=== PATIENT | male | born 1960 | race Caucasian/White ===

== ENCOUNTER 2017-05-05 06:12 | Inpatient (IN) ==
[2017-04-28 14:00] LABS: MANUAL DIFF NEEDED? NO
[2017-04-28 14:00] LABS: URINE MICRO REVIEW NEEDED? NO; URINE SOURCE CLEAN CATCH
[2017-04-28 14:11] LABS: BASO% 0.5 % (0.0-0.8); EOS# 0.08 X1000 (0.0-0.7); EOS% 0.9 % (0.0-10.0); HEMATOCRIT 41.6 % (42.0-52.0); HEMOGLOBIN 14.7 g/dL (14.0-18.0); LYMPH# 2.42 X1000 (1.2-3.4); LYMPH% 26.5 % (20.5-51.1); MCH 34.1 PG (27-31); MCHC 35.3 g/dL (33-37); MCV 96.5 FL (81-99); MONO# 0.79 X1000 (0.11-0.59); MONO% 8.7 % (1.7-9.3); MPV 9.4 FL (7.4-10.4); NEUT% 63.4 % (42.2-75.2); PLT 314 X1000 (130-400); RBC 4.31 XMIL (4.7-6.1)
[2017-04-28 14:12] LABS: BILIRUBIN URINE NEGATIVE (NEGATIVE); BLOOD URINE NEGATIVE (NEGATIVE); COLOR YELLOW; GLUCOSE URINE NEGATIVE (NEGATIVE); LEUKOCYTES URINE SMALL (NEGATIVE); NITRITE URINE NEGATIVE (NEGATIVE); PH URINE 6.5; PROTEIN URINE NEGATIVE (NEGATIVE); SP GRAVITY URINE 1.018; TURBIDITY URINE CLEAR (CLEAR); UR EPITHELIAL CELLS <10 /HPF (<10); URINE BACTERIA NEGATIVE /HPF; URINE RBC <10 /HPF (<10); UROBILINOGEN URINE NORMAL (NORMAL)
[2017-04-28 14:31] LABS: INR 0.97; PROTIME 10.2 Seconds (9.2-11.7); PTT 28.3 Seconds (22.0-36.0)
[2017-04-28 15:06] LABS: AGAP 11; BUN 11 mg/dL (8-22); CALCIUM 8.4 mg/dL (8.8-10.2); CHLORIDE 102 mmol/L (98-107); COSMO 276; SODIUM 139 mmol/L (136-145); TCO2 26 mmol/L (25-35)
--- NOTE | 2017-04-28 15:08 | EKG Report ---
Test Performed on : 04/28/2017 1:50:55 PM Test Reason : PAT Blood Pressure : / mmHG Vent. Rate : 069 BPM Atrial Rate : 069 BPM P-R Int : 162 ms QRS Dur : 114 ms QT Int : 386 ms P-R-T Axes : 052 009 043 degrees QTc Int : 413 ms Normal sinus rhythm. Incomplete right bundle branch block Borderline ECG No previous ECGs available Confirmed by Varinder Pratt MD ([id number]) on 04/28/2017 3:25:49 PM
[2017-05-05] MEDS ORDERED: TORADOL ONE ×2 (06:36→08:08)
[2017-05-05] MEDS ORDERED: CYKLOKAPRON 1,000 MG/NS 1,000 MG/100 ML IVPB ONE ×2 (06:36→06:38)
[2017-05-05] MEDS ORDERED: MARCAINE 0.25% PF ONE (06:36)
[2017-05-05] MEDS ORDERED: DURAMORPH ONE (06:36)
[2017-05-05] MEDS ORDERED: EXPAREL 1.3% ONE (06:37)
[2017-05-05] MEDS ORDERED: SODIUM CHLORIDE 0.9% ONE (06:37)
[2017-05-05] MEDS ORDERED: NEOSPORIN G.U. IRRIGANT ONE (06:37)
[2017-05-05] MEDS ORDERED: COLACE ONE (06:40)
[2017-05-05] MEDS ORDERED: REGLAN ONE (06:40)
[2017-05-05] MEDS ORDERED: PEPCID ONE (06:40)
[2017-05-05] MEDS ORDERED: VALIUM ONE (06:40)
[2017-05-05] MEDS ORDERED: LYRICA ONE (06:41)
[2017-05-05] MEDS ORDERED: CELEBREX ONE (06:41)
[2017-05-05] MEDS ORDERED: LR 1,000 ML ONE (06:41)
[2017-05-05] MEDS ORDERED: VANCOMYCIN 1 GM/NS 1 GM/250 ML IVPB ONE (06:42)
[2017-05-05] MEDS ORDERED: BREO ELLIPTA 200/25 MCG INH INH PRN (07:05)
[2017-05-05] MEDS ORDERED: KLONOPIN PO PRN (07:05)
[2017-05-05] MEDS ORDERED: HURRICAINE SPRAY (DOSE) ONE (07:12)
[2017-05-05] MEDS ORDERED: ZEMURON ONE ×2 (07:14→08:25)
[2017-05-05] MEDS ORDERED: XYLOCAINE-MPF 2% ONE (07:14)
[2017-05-05] MEDS ORDERED: VERSED ONE (07:16)
[2017-05-05] MEDS ORDERED: FENTANYL ONE (07:17)
[2017-05-05] MEDS ORDERED: DIPRIVAN 1% ONE (07:18)
[2017-05-05] MEDS ORDERED: QUELICIN (DOSE) ONE (07:18)
[2017-05-05] MEDS: VANCOMYCIN ONE ×2 (07:20→08:40)
[2017-05-05] MEDS ORDERED: ROBINUL ONE (08:04)
[2017-05-05] MEDS ORDERED: ZOFRAN ONE (08:05)
[2017-05-05] MEDS ORDERED: DILAUDID ONE (08:08)
[2017-05-05] MEDS ORDERED: OFIRMEV 1000 MG/ISOTONIC SOLN 1,000 MG/100 ML BOTTLE ONE (08:20)
[2017-05-05] MEDS ORDERED: DECADRON ONE (08:26)
[2017-05-05] MEDS ORDERED: FLOMAX PO SCH ×2 (09:00→17:00)
[2017-05-05] MEDS ORDERED: EFFEXOR XR PO SCH (09:00)
[2017-05-05] MEDS ORDERED: PROSCAR PO SCH ×2 (09:00→17:00)
[2017-05-05] MEDS ORDERED: NS 1,000 ML ONE (09:56)
[2017-05-05] MEDS ORDERED: MILK OF MAGNESIA PO PRN (10:30)
[2017-05-05] MEDS ORDERED: ZOFRAN IV PRN (10:30)
[2017-05-05] MEDS ORDERED: ZOFRAN PO PRN (10:30)
--- NOTE | 2017-05-05 10:34 | Diag Imaging Result Doc PS360 ---
KNEE 1-2 VIEWS-RIGHT - 05/05/2017 INDICATION: post op tka TECHNIQUE: Two views COMPARISON: None FINDINGS: There has been right total knee arthroplasty. Alignment is anatomic. No hardware fracture or loosening. IMPRESSION: No complication. Electronically signed by Jhonatan Pelaez 05/05/2017 10:32 AM
--- NOTE | 2017-05-05 11:26 | OPERATIVE NOTE ---
PROCEDURE DATE: 05/05/2017 PREOPERATIVE DIAGNOSIS: Degenerative osteoarthritis of the right knee. POSTOPERATIVE DIAGNOSIS: Degenerative osteoarthritis of the right knee. PROCEDURE PERFORMED: Right total knee arthroplasty with a DePuy Attune size 7 posterior stabilized femur, a size 7 tibial tray, a 6 mm rotating platform tibial insert, and a 41 mm medialized anatomic patella. SURGEON: Virgil Hidalgo MD. ICE RINK ATTENDANT: LULU eCrda. SECOND DIAGNOSTIC ASSISTANT: Linden Oakley RN. ANESTHESIA: General. IV FLUIDS: 700 mL of lactated Ringer's. ESTIMATED BLOOD LOSS: 20 mL. TOURNIQUET TIME: 75 minutes at 350 mmHg. COMPLICATIONS: None. INDICATION: The patient is a pleasant, 56-year-old male patient who presents today with a chronic history of pain and discomfort of his right knee. He has undergone previous arthroscopies. He has continued with pain and discomfort despite appropriate nonoperative treatment. X-rays revealed degenerative osteoarthritis. The recommendation to proceed with a right total knee arthroplasty was offered. Risks and benefits of surgery were explained, including the risks of anesthesia, , bleeding, infection, failure to relieve pain, postoperative stiffness, nerve injury, blood clots, and other imponderables. All questions were answered. The patient and family wished to proceed with surgery. DETAILS OF OPERATION: The patient was taken to the operating room and underwent general anesthesia. Was placed supine on the operating table. After adequate anesthesia was obtained, the patient's right lower extremity was subsequently prepped and draped in the usual sterile fashion. Esmarch was used to exsanguinate the right lower extremity. The tourniquet was inflated to 350 mmHg. A standard anterior incision made with a skin knife. Medial and skin envelopes developed. Standard medial parapatellar arthrotomy was then performed. Patella fat pad was excised. Retractors then placed. Approximately a 1 cm anterior to the PCL insertion, starting reamer was passed. Intramedullary guide with a distal femoral cutting block was pinned in position. The distal femoral cut was then performed in standard fashion. A sizing block was placed and measured size 7. Corresponding pins were placed. Anterior, posterior, and chamfer cuts were then made. Attention then turned to the proximal tibia. Further resection of the ACL and PCL was performed. Using the extramedullary guide, the proximal tibia cutting block was pinned in position. Had good alignment confirmed with the alignment mayra. The proximal tibia was then resected. After this had been performed, the medial and lateral meniscus was excised. A curved osteotome was used to remove the posterior osteophytes. A spacer block was placed and had good soft tissue balance in both flexion and extension. A trial size 7 tibial tray appeared be correct size. This was pinned in position. This was followed by a central reamer and a fin punch. A box cutting guide was then placed on the distal femur. A box cut was performed. A trial 7 femoral component was impacted in position. Two lug holes were drilled. Trial tibial insert was placed and had good soft tissue balancing. The patella was everted and resected in standard fashion. A size 41 appeared to correct size. Corresponding holes were drilled. A size 41 patella component was then placed and had good patellofemoral tracking. The trial components were then removed. Copious irrigation was then performed with antibiotic pulsatile lavage while vancomycin was mixed cement on the back table. Sequential cementing was then performed, first with the tibial tray and excess cement with a [place], followed by the femoral component and excess cement was removed with a [place] and a trial tibial insert in full extension. Axial loading was maintained while cement cured. Patella cemented in standard fashion. Patella clamp was placed. While cement was curing, Exparel was placed in deep soft tissue, as well as subcutaneous tissue. After the cement had cured, the peripheral cement was removed with a small osteotome. The 6 mm rotating platform tibial insert appeared to be correct size. The trial tibial insert was removed. Exparel was placed in deep posterior capsule. The wound was copiously irrigated with antibiotic pulsatile lavage. This followed by a 6 mm rotating platform tibial insert. Range of motion was then trialed once again and had excellent range of motion. Had good patellofemoral tracking and good stability. A 1/8 Hemovac drain was placed. It was not sewn in. Copious irrigation then performed once again with antibiotic pulsatile lavage. Number 1 Vicryl was used to repair the arthrotomy, followed by 2-0 Vicryl to repair the subcutaneous tissue, and skin jamey. Adaptic, sterile 4 x 4s, Webril, cryo unit, and Clarence wrap were applied to the right lower extremity. Patient tolerated the procedure well and was transferred to the recovery room in stable condition. cc: Virgil Hidalgo MD
[2017-05-05] MEDS ORDERED: PNEUMOVAX 23 IM ONE (13:30)
[2017-05-05] MEDS ORDERED: NICODERM PATCH TD SCH (14:00)
[2017-05-05] MEDS: NS 1,000 ML IV SCH ×2 (14:23→23:37)
[2017-05-05] MEDS: TYLENOL PO SCH ×2 (14:23→21:30)
[2017-05-05] MEDS: OXY IR PO PRN (14:23)
[2017-05-05] MEDS: DILAUDID IV PRN ×2 (17:34→21:24)
[2017-05-05] MEDS ORDERED: VANCOMYCIN 1 GM/NS 1 GM/250 ML IVPB IV ONE (19:00)
[2017-05-05] MEDS ORDERED: REMERON PO SCH (21:00)
[2017-05-05] MEDS ORDERED: SEROQUEL PO SCH (21:00)
[2017-05-05] MEDS ORDERED: FLONASE NAS SCH (21:00)
[2017-05-05] MEDS ORDERED: ZOCOR PO SCH (21:00)
[2017-05-05] MEDS ORDERED: REQUIP PO SCH (21:00)
[2017-05-05] MEDS: COLACE PO SCH (21:29)
[2017-05-06 05:44] LABS: HEMATOCRIT 31.3 % (42.0-52.0); HEMOGLOBIN 10.8 g/dL (14.0-18.0)
[2017-05-06] MEDS ORDERED: XARELTO PO SCH (06:00)
[2017-05-06] MEDS: TYLENOL PO SCH (06:00)
[2017-05-06] MEDS: OXY IR PO PRN ×2 (06:00→06:53)
[2017-05-06 06:05] LABS: AGAP 10; BUN 16 mg/dL (8-22); CALCIUM 8.1 mg/dL (8.8-10.2); CHLORIDE 105 mmol/L (98-107); COSMO 284; POTASSIUM 3.5 mmol/L (3.5-5.1); SODIUM 141 mmol/L (136-145); TCO2 26 mmol/L (25-35)
[2017-05-06] MEDS: NS 1,000 ML IV SCH (06:30)
[2017-05-06] MEDS: COLACE PO SCH (06:31)
[2017-05-06 06:33] VITALS: BP 123/60
[2017-05-06] MEDS ORDERED: PEPCID PO SCH (09:00)
--- NOTE | 2017-05-06 09:30 | PROGRESS NOTE ---
DATE: 05/06/2017 SUBJECTIVE: Patient is a 56-year-old male, who is 1 day status post right total knee arthroplasty. He rested well through the night and has no complaints this morning. OBJECTIVE: On physical exam, patient's right knee dressing is intact. Calf is soft. He has active dorsiflexion and plantar flexion. He is neurovascularly distally. LABORATORY DATA: His hemoglobin is 10.8, hematocrit is 31.3. IMPRESSION: Postoperative day #1 status post right total knee arthroplasty. PLAN: At this point, we will change his dressing, discontinue his drain, and Hep-Lock his IV. We will plan on discharging home after physical therapy. Patient will receive home physical therapy. He will follow up on 05/18/2017 in the office. cc: Virgil Hidalgo MD
== END 2017-05-06 09:20 | disposition home health service (06) ==
LOC: SURHOLD 06:12 → 4N 08:16
PROVIDERS: ADMIT Orthopaedic Surgery Adult Reconstructive Orthopaedic Surgery; ATTEND Orthopaedic Surgery Adult Reconstructive Orthopaedic Surgery